=== PATIENT | male | born 1945 | race Caucasian/White ===

== ENCOUNTER 2019-11-05 01:40 | Outpatient (CLI) | payer MEDICARE, SELFPAY | END 2019-11-05 02:00 | PROVIDERS: Visit Provider Urology | DX: R30.0 Dysuria (principal) | CPT/HCPCS: 87077; 87086; 87186 ==

== ENCOUNTER 2019-11-20 02:12 | Outpatient (CLI) | payer MEDICARE, SELFPAY ==
[2019-11-20 12:44] LABS: HGB 9.8 g/dL (13.5-17.5); MCH 31.7 pg (27.0-33.0); MCHC 31.6 % (32.0-36.0); MCV 100.3 fL (80-95); MPV 9.2 fL (8.0-11.0); Platelet Count 152 10^3/uL (130-400); RBC 3.09 10^6/uL (4.36-5.78); RDW 13.5 % (11.8-14.1); WBC 6.03 10^3/uL (4.4-10.8)
[2019-11-20 13:08] LABS: INR 1.1 (0.9-1.1); PTT Activated 43.9 sec (21.0-31.4); Prothrombin Time 10.9 sec (9.3-11.0)
[2019-11-20 13:17] LABS: Hemoglobin A1C 5.4 % (3.8-5.6)
[2019-11-20 13:37] LABS: Albumin 3.8 g/dL (3.4-5.0)
[2019-11-20 14:49] LABS: RDW-SD 48.9 fL
[2019-11-21 09:05] LABS: HBs Antibody, Quant 557.2 mIU/mL (See Note); Hepatitis B Surface Ab Positive (See Note)
[2019-11-21 10:10] LABS: HIV-1/2 Ag & Ab Screen Negative (Negative)
[2019-11-21 11:13] LABS: EBNA IgG Positive (Negative); EBV Interpretation (See Note); VCA IgG Positive (Negative); VCA IgM Negative (Negative)
[2019-11-21 14:26] LABS: HCV RNA Qualitative Undetected (Undetected)
[2019-11-21 18:17] LABS: Hepatitis Be Antigen Negative (Negative)
[2019-11-22 11:41] LABS: CMV Ab, IgM Negative (Negative); Syphilis Total Ab w/Reflex Nonreactive (Nonreactive)
[2019-11-25 15:58] LABS: Coccidioides Ab, CompF Negative (Negative); Coccidioides IgG, ImmDiff Negative (Negative); Coccidioides IgM, ImmDiff Negative (Negative)
== END 2019-11-20 02:32 ==
DX: I10 Essential (primary) hypertension (principal); N18.6 End stage renal disease
CPT/HCPCS: 36415; 85027; 86706; 86900; 86901; 87389; 87522; 87798; 82040; 83036; 85610; 85730; 86592; 86635; 86644; 86645; 86664; 86665; 86704; 86780; 87350

== ENCOUNTER 2020-11-08 16:27 | Emergency (ER) | payer MEDICARE, SELFPAY ==
--- NOTE | 2020-11-08 16:45 | DI.RAD_ITS ---
Exam(s) XR ANKLE RT COMPLETE EXAM: XR ANKLE RT COMPLETE CLINICAL HISTORY: Ankle pain, Hardware eval. TECHNIQUE: 2D digital imaging was performed. COMPARISON: CR RIGHT ANKLE 2 VIEW from 01/02/2015 FINDINGS: There is ankle fusion hardware and there has been resection of the distal fibula Previously present long screws through the calcaneus-posterior aspect of the subtalar joint is been r emoved since 2014 and there is fusion at this level noted. There is been interval placement of an ad ditional plate on the medial aspect of the ankle. This is secured by multiple screws, of 1 inch of w hich appears fractured. The laterally located plate is again noted be associated with at least 2 scr ew fractures. Other screws noted. There does appear to be fusion across the ankle joint. There is no radiographic evidence of osteomyelitis. Vascular calcification is noted in the posterior tibial a rtery and continuing into the plantar arteries. Moderate size inferior calcaneal spur is noted. No fracture evident. IMPRESSION: DATA REPOSITORY: RADIATION DOSE DELIVERED:
[2020-11-08 16:48] VITALS: BP 141/67; PULSE 83; TEMP 36.8; O2SAT 100
--- NOTE | 2020-11-08 16:55 | ED.GENADUL_ITS ---
Discharge Plan Disposition Patient Disposition: HOME Condition: Stable Discharge Details Clinical Impression: Unspecified open wound, right ankle, initial encounter Primary Care Provider: Ross Ramsey ED Provider: Kelsea Jones Home Meds and New Rx's Prescriptions: No Action nifedipine 20 MG capsule 60 mg PO DAILY RF: 0 atenolol 100 MG tablet 100 mg PO DAILY RF: 0 hydrocodone-acetaminophen 1 EACH tablet 2 ea PO TID PRNRF: 0 calcitriol 0.5 MCG capsule 1 mcg PO DAILY RF: 0 hydrochlorothiazide 25 MG tablet 25 mg PO DAILY RF: 0 tizanidine 4 MG capsule 4 mg PO BID PRNRF: 0 Fish Oil 500 MG capsule 500 mg PO RF: 0 cholecalciferol (vitamin D3) [Vitamin D3] 2,000 UNIT capsule 2,000 unit PO RF: 0 vitamin [id number]-ukdik acid 1 EACH tablet 1 ea PO RF: 0 hydrocodone-acetaminophen 1 EACH tablet 1 tab-cap PO Q6H PRN Qty: 30 RF: 0 Discharge Instructions Instructions: Puncture Wound (ED) Additional Instructions: Keep wound clean and dry. Change dressing daily. Follow up with Orthopedics in 1-2 weeks. Follow up with primary care provider in 3-5 days. Return to ED or be seen by PCP sooner if any worsening or concerns. Increase oral fluids. Please take Tylenol or Ibuprofen with food every 4-6 hours as needed for pain and swelling. Referrals: Ross Ramsey [Primary Care Provider] - Sebas Marc MD [ [facility] STAFF PHYSICIAN] - 2 weeks Discharge Data Discharge Date/Time-TO BE ENTERED AT DEPARTURE: 11/08/20 18:48 Medical Decision Making 75-year-old male presents to ER with chief complaint of right ankle pain which he noticed yesterday. Pain has a history of internal hardware placed for an an kle fracture in 2019 in [place]. He noticed a wound to the medial aspect of his ankle while at dialysis today after they were checking his ankle for swelling. He denies any other associated symptoms other than intermittent tenderness. No drainage. He does have a past medical history of hypertension, dialysis. Orthopedic on-call Dr. Marc was able to personally review the images of the ankle x-ray he recommends follow-up in the office nonurgently. This is most likely a chronic matter. Will place dressing on the ankle and instruct patient to follow-up with orthopedics. HPI General Mode of arrival: ambulatory . Date/Time Provider Initiated Documentation: 11/08/20 16:30 . Limitations to Documentation: no limitations . Information obtained by: patient . HPI Narrative: 75-year-old male presents to ER with chief complaint of right ankle pain which he noticed yesterday. Pain has a history of internal hardware placed for an ankle fracture in 2019 in [place]. He noticed a wound to the medial aspect of his ankle while at dialysis today after they were checking his ankle for swelling. He denies any other associated symptoms other than intermittent tenderness. No drainage. He does have a past medical history of HTN, Dialysis. Related Data Home Medications Medication Instructions Recorded Confirmed atenolol 100 mg PO DAILY 01/09/15 calcitriol 1 mcg PO DAILY tab-cap 01/09/15 11/08/20 cholecalciferol (vitamin D3) 2,000 unit PO 01/09/15 [Vitamin D3] hydrochlorothiazide 25 mg PO DAILY tab-cap 01/09/15 hydrocodone-acetaminophen 2 ea PO TID PRN 01/09/15 11/08/20 nifedipine 60 mg PO DAILY 01/09/15 omega-3 fatty acids [Fish Oil] 500 mg PO 01/09/15 tizanidine 4 mg PO BID PRN 01/09/15 11/08/20 vitamin Z27-[id number] acid 1 ea PO 01/09/15 hydrocodone-acetaminophen 1 tab-cap PO Q6H PRN #30 tab-cap 01/24/15 11/08/20 Allergies Allergy/AdvReac Type Severity Reaction Status Date / Time No Known Drug Allergies Allergy Unverified 10/16/15 11:22 General Stated Complaint: Orthopedic JOSE: 4 Review of Systems All systems reviewed & are unremarkable except as noted in HPI and below Musculoskeletal Musculoskeletal: Reports as per HPI and Reports arthralgias (Right ankle) PFS Social History Smoking/Tobacco Use Status: Former Tobacco Use Smoking risk assessment performed?: Yes Alcohol Intake: former Drug use: Never Substance use type: does not use Do you feel safe at home: Yes Do you feel safe in your relationship?: Yes Exam Extrem Right lower extremity: ankle Details: abnormal to inspection, tenderness and no edema Ankle/foot/toe images: 1. Circular lesion, erythemic with a mid ulceration no drainage Course Vital Signs Vital signs: Vital Signs Temperature 36.8 C 11/08/20 16:48 Pulse 83 11/08/20 16:48 Blood Pressure 141/67 H 11/08/20 16:48 Pulse Oximetry 100 11/08/20 16:48 Temperature 36.8 C 11/08/20 16:48 Temperature Source Temporal Artery Scan 11/08/20 16:48 Pulse 83 11/08/20 16:48 Blood Pressure 141/67 H 11/08/20 16:48 Blood Pressure Position Sitting 11/08/20 16:48 Pulse Oximetry 100 11/08/20 16:48 Oxygen Delivery Method Room Air 11/08/20 16:48 Oxygen Flow Rate 0 11/08/20 16:48 Pain Level 1 11/08/20 16:48
--- NOTE | 2020-11-08 18:20 | DI.VRAD_ITS ---
PROCEDURE INFORMATION: Exam: XR Right Ankle Exam date and time: 11/08/2020 4:54 PM Age: 75 years old Clinical indication: Prior surgery; Surgery date: 6+ months; Surgery type: RT ankle fusion? 05/04/2018; Patient HX: Right ankle pain, eval hardware TECHNIQUE: Imaging protocol: XR Right ankle. Views: 3 or more views. COMPARISON: CR RIGHT ANKLE 2 VIEW 01/02/2015 12:16 PM FINDINGS: Bones/joints: There are several screws which are broken are truncated. There are multiple more screws and other hardware than on prior. There is at least partial arthrodesis across the ankle. Osteopenia . Distal left fibular resection again noted. Soft tissues: Normal. Vasculature: Atherosclerosis. Other findings: Pes cavus IMPRESSION: Numerous screws are broken. New hardware since comparison. Clinical correlation recommended . Dictated and Authenticated by: Danyel Grey MD. Ordering:JT Enamorado MD
== END 2020-11-08 18:48 | disposition home or self-care (01) ==
PROVIDERS: Emergency Provider Registered Nurse Emergency; PCP Urology
DX: S91.031A Puncture wound without foreign body, right ankle, initial encounter (principal); X58.XXXA Exposure to other specified factors, initial encounter; T84.116A Breakdown (mechanical) of internal fixation device of bone of right lower leg, initial encounter; Z87.81 Personal history of (healed) traumatic fracture
CPT/HCPCS: 99283; 73610

== ENCOUNTER 2023-09-15 16:10 | Emergency (ER) | payer MEDICARE, SELFPAY ==
[2023-09-15] VITALS (10 sets, daily range): BP systolic 133–165; BP diastolic 47–150; PULSE 61–67; RESP 10–19; TEMP 36.7; O2SAT 93–97
--- NOTE | 2023-09-15 16:35 | W.ED.GENAD ---
Discharge Plan Disposition Patient Disposition: Home Condition: Stable Discharge Details Clinical Impression: Anemia, Dark stools Primary Care Provider: Ross Ramsey ED Provider: Dinesh Grove Home Meds and New Rx's Prescriptions: New omeprazole 40 mg capsule,delayed release(DR/EC) 40 mg PO DAILY Qty: 30 0RF Continued nifedipine 20 MG capsule 60 mg PO DAILY atenolol 100 MG tablet 100 mg PO DAILY hydrocodone-acetaminophen 1 EACH tablet 2 ea PO TID PRN calcitriol 0.5 MCG capsule 1 mcg PO DAILY hydrochlorothiazide 25 MG tablet 25 mg PO DAILY tizanidine 4 MG capsule 4 mg PO BID PRN Fish Oil 500 MG capsule 500 mg PO cholecalciferol (vitamin D3) [Vitamin D3] 2,000 UNIT capsule 2,000 unit PO vitamin X26-[id number] acid 1 EACH tablet 1 ea PO hydrocodone-acetaminophen 1 EACH tablet 1 tab-cap PO Q6H PRN Qty: 30 Discharge Instructions Additional Instructions: Your hemoglobin was above 7 to the blood transfusion Follow-up with your primary care provider within 1 week If you feel more ill, have difficulty breathing or severe weakness or severe abdominal pain return to the emergency department for reevaluation HPI General Date/Time Provider Initiated Documentation: 09/15/23 16:19. Limitations to Documentation: no limitations. Information obtained by: patient. History of Present Illness 78 year old M presents to the emergency department with the chief complaint of Dark stools, described as moderate, Patient started experiencing this week(s) (1) and it has been constant. No relieving factors improve symptom(s), No exacerbating factors reported . Patient notes no other symptoms.; denies chest pain, fever/chills, shortness of breath and weakness. Patient did receive the following treatments prior to arrival, none Related Data Home Medications Medication Instructions Recorded Confirmed atenolol 100 mg tablet 100 mg PO DAILY 01/09/15 calcitriol 0.5 mcg capsule 1 mcg PO DAILY 01/09/15 11/08/20 cholecalciferol (vitamin D3) 50 2,000 unit PO 01/09/15 mcg (2,000 unit) capsule (Vitamin D3) hydrochlorothiazide 25 mg tablet 25 mg PO DAILY 01/09/15 hydrocodone 10 mg-acetaminophen 2 ea PO TID PRN 01/09/15 11/08/20 325 mg tablet nifedipine 20 mg capsule 60 mg PO DAILY 01/09/15 omega-3 fatty acids 500 mg capsule 500 mg PO 01/09/15 (Fish Oil) tizanidine 4 mg capsule 4 mg PO BID PRN 01/09/15 11/08/20 vitamin B12 500 mcg-folic acid 400 1 ea PO 01/09/15 mcg tablet hydrocodone 5 mg-acetaminophen 325 1 tab-cap PO Q6H PRN #30 tab-caps 01/24/15 11/08/20 mg tablet omeprazole 40 mg capsule,delayed 40 mg PO DAILY #30 caps 09/15/23 release Previous Rx's Medication Instructions Recorded omeprazole 40 mg capsule,delayed 40 mg PO DAILY #30 caps 09/15/23 release General Stated Complaint: GI Bleed JOSE: 3 Review of Systems All systems reviewed & are unremarkable except as noted in HPI and below Constitutional Constitutional: Denies chills, Denies fever(s) and Denies weakness Cardiovascular Cardiovascular: Denies chest pain and Denies dyspnea Respiratory Respiratory: Denies cough and Denies dyspnea Gastrointestinal Gastrointestinal: Denies abdominal pain, Denies nausea and Denies vomiting Musculoskeletal Musculoskeletal: Denies joint swelling Neurologic Neurologic: Denies weakness Exam Const General: no acute distress Orientation: alert [facility] Head: normal to inspection Ears: external ears normal General nose exam: external nose normal Mouth: moist mucous membranes Eyes General: appearance normal, both eyes and all related structures Neck Neck: normal visual inspection Resp Effort & Inspection: normal respiratory effort and able to speak in complete sentences Cardio Rate: regular rate GI Palpation: soft and nontender Skin General skin exam: no rashes or lesions noted Neuro General: patient alert and patient oriented x3 Extrem General: normal to inspection Psych Mental Status: mental status grossly normal Course Vital Signs Vital signs: Vital Signs Temperature 36.7 C 09/15/23 16:12 Pulse 67 09/15/23 16:12 Respiratory Rate 18 09/15/23 16:12 Blood Pressure 146/47 H 09/15/23 16:12 Pulse Oximetry 97 09/15/23 16:12 Temperature 36.7 C 09/15/23 16:12 Pulse 67 09/15/23 16:12 Respiratory Rate 18 09/15/23 16:12 Respiratory Effort Normal 09/15/23 16:17 Blood Pressure 146/47 H 09/15/23 16:12 Blood Pressure Position Sitting 09/15/23 16:12 Pulse Oximetry 97 09/15/23 16:12 Oxygen Delivery Method Room Air 09/15/23 16:12 Oxygen Flow Rate 0 09/15/23 16:12 Medical Decision Making 78-year-old male with a history of end-stage renal disease on dialysis Tuesday comes in with 1 week of dark stools. He denies any abdominal pain, increased weakness, difficulty breathing, chest pain. He is alert and oriented x 4 on arrival, has a soft nontender abdomen. I recommended doing a rectal exam and testing for guaiac but patient declined and has decision-making capacity. He does show me a photo of a bowel movement he had yesterday that was dark. No fabiana blood. Will obtain a CBC, CMP, coags and type and screen, given lack of abdominal tenderness do not feel imaging acutely indicated. Will also give a dose of Protonix, he has no signs of liver failure denies chronic alcohol use so doubt varices. Patient continues to feel well and asymptomatic, still declining rectal exam. Labs show hemoglobin of 7.7, has not had blood work done in our system since 2019. Discussed results with patient and spent 90 and blood transfusion did recommend being admitted but can admit him here due to being on dialysis so would have to transfer him. He has decision-making capacity and refuses to be transferred or admitted. He understands that her risks of delaying treatment for possible GI bleed including disability and and he is willing to accept these risks. He is choosing to leave against my advice, he was instructed he can return at any time, and also advised to follow-up with his PCP as soon as possible. Will start him on a omeprazole as well Differential Diagnosis Differential Diagnosis: Gastritis, ulcer, GI bleed Medical Records Medical records reviewed: Yes I reviewed the patient's medical records. Lab Data Lab results reviewed: Yes I reviewed the patient's lab results. Quality:SDOH Health Related Social Needs: No Data to Display [facility] All Active Problems (Updated 09/15/23 @ 18:54 by Dinesh Grove MD) Dark stools (Acute) Anemia (Chronic) Unspecified open wound, right ankle, initial encounter (Acute) Social History Smoking/Tobacco Use Status: Former Tobacco Use Smoking risk assessment performed?: Yes Alcohol Intake: former Drug use: Never Substance use type: does not use Do you feel safe at home: Yes Do you feel safe in your relationship?: Yes
[2023-09-15 17:52] LABS: Abs Immature Grans 0.03 10^3/uL (0.0-0.06); Absolute Basophil Count 0.02 10^3/uL (0.0-0.2); Absolute Eosinophil Count 0.12 10^3/uL (0.0-0.7); Absolute Lymphocyte Count 1.42 10^3/uL (1.2-3.4); Absolute Monocyte Count 0.84 10^3/uL (0.1-0.8); Absolute Neutrophil Count 7.28 10^3/uL (1.2-6.7); Basophils % 0.2 %; Eosinophils % 1.2 %; HCT 24.3 % (40.0-50.0); HGB 7.7 g/dL (13.5-17.5); Immature Grans % 0.3 %; Lymphocytes % 14.6 %; MCHC 31.7 % (32.0-36.0); MCV 104 fL (80-95); MPV 9.7 fL (8.0-11.0); Monocytes % 8.7 %; Platelet Count 171 10^3/uL (130-400); RBC 2.33 10^6/uL (4.36-5.78); RDW 17.3 % (11.8-14.1); RDW-SD 62.5 fL; WBC 9.71 10^3/uL (4.4-10.8)
[2023-09-15 18:02] LABS: ALT 16 U/L (16-63); AST 6 U/L (15-37); Albumin 3.1 g/dL (3.4-5.0); Alkaline Phosphatase 109 U/L (46-116); BUN 48 mg/dL (7-18); Bilirubin, Total 0.8 mg/dL (0.2-1.0); Calcium 9.2 mg/dL (8.5-10.1); Chloride 94 mmol/L (98-107); Estimated GFR 7.55 (mL/min/1.73m2); Glucose 93 mg/dL (74-106); Potassium 5.8 mmol/L (3.5-5.1); Sodium 132 mmol/L (136-145); Total Protein 6.5 g/dL (6.4-8.2)
[2023-09-15 18:08] LABS: Diff Comment RBC Morph Reviewed; Hypochromasia 2+; Polychromasia Present
[2023-09-15 18:10] LABS: INR 1.1 (0.9-1.1); PTT Activated 39.6 sec (23.6-32.8); Prothrombin Time 10.6 sec (9.1-11.1)
[2023-09-15] MEDS: Pantoprazole 40 MG VIAL IVP (18:16)
== END 2023-09-15 19:22 | disposition home or self-care (01) ==
PROVIDERS: Emergency Provider Emergency Medicine; PCP Urology
DX: D64.9 Anemia, unspecified (principal); K92.1 Melena
CPT/HCPCS: 36415; 80053; 86850; 86900; 86901; 96374; 99284; 83735; 85025; 85610; 85730; 99283; J2470

== ENCOUNTER 2023-09-28 19:20 | Emergency (ER) | payer MEDICARE, SELFPAY ==
[2023-09-28] VITALS (45 sets, daily range): BP systolic 89–212; BP diastolic 22–169; PULSE 56–85; RESP 12–25; TEMP 36.6; O2SAT 89–98
--- NOTE | 2023-09-28 19:30 | RT.EKG_ITS ---
APPROVED REPORT Exam: Resting ECG Reason for Exam: weakness Patient Location: E HR:63 bpm ECG Measurements Heart Rate 63 AXIS HI 178 P 44 QRSd 93 QRS -38 QT 428 T 26 QTc 441 Conclusion Sinus rhythm...normal P axis, V-rate 60- 99 Left axis deviation...QRS axis (-30,-90) I have reviewed and interpreted ECG and agree with software generated interpretation.
--- NOTE | 2023-09-28 19:30 | DI.RAD_ITS ---
Exam(s) XR CHEST 2V PA LATERAL EXAM: XR CHEST 2V PA LATERAL CLINICAL HISTORY: weakness. TECHNIQUE: 2D digital imaging was performed. COMPARISON: No exams were available for comparison FINDINGS: 2 views: There is a right supra clavi in double lumen catheter with distal tip in upper right atrium. Heart size is normal. The mediastinum is not widened. Lungs are clear. No infiltrates nor pleural effusions. Pulmonary edema. Multilevel fusion hardware in is noted in the thoracolumbar spine and there is also fusion hardware i n the cervical spine. IMPRESSION: No acute pulmonary findings. Other findings as above. DATA REPOSITORY: RADIATION DOSE DELIVERED:
--- NOTE | 2023-09-28 19:43 | W.ED.GENAD ---
Discharge Plan Discharge Details Chief Complaint: GenMedical Primary Care Provider: Ross Ramsey ED Provider: Yolande Lopez Home Meds and New Rx's Prescriptions: No Action nifedipine 20 MG capsule 60 mg PO DAILY atenolol 100 MG tablet 100 mg PO DAILY hydrocodone-acetaminophen 1 EACH tablet 2 ea PO TID PRN calcitriol 0.5 MCG capsule 1 mcg PO DAILY hydrochlorothiazide 25 MG tablet 25 mg PO DAILY tizanidine 4 MG capsule 4 mg PO BID PRN Fish Oil 500 MG capsule 500 mg PO cholecalciferol (vitamin D3) [Vitamin D3] 2,000 UNIT capsule 2,000 unit PO vitamin O80-[id number] acid 1 EACH tablet 1 ea PO hydrocodone-acetaminophen 1 EACH tablet 1 tab-cap PO Q6H PRN Qty: 30 omeprazole 40 mg capsule,delayed release(DR/EC) 40 mg PO DAILY Qty: 30 0RF HPI General Date/Time Provider Initiated Documentation: 09/28/23 19:28. Limitations to Documentation: no limitations. Information obtained by: patient, family and RN notes reviewed. History of Present Illness 78 year old M presents to the emergency department with the chief complaint of generalized weakness, described as moderate, Patient started experiencing this day(s) and it has been constant (progressively worsening). No relieving factors improve symptom(s), Movement worsens symptoms (symptoms worsen with exertion) . Patient notes weakness (generalized); denies confusion, chest pain, cough, diaphoresis, fever/chills, headaches, malaise, nausea/vomiting, rash, shortness of breath and syncope. Patient did receive the following treatments prior to arrival, other (dialysis today) Related Data Home Medications Medication Instructions Recorded Confirmed atenolol 100 mg tablet 100 mg PO DAILY 01/09/15 calcitriol 0.5 mcg capsule 1 mcg PO DAILY 01/09/15 11/08/20 cholecalciferol (vitamin D3) 50 2,000 unit PO 01/09/15 mcg (2,000 unit) capsule (Vitamin D3) hydrochlorothiazide 25 mg tablet 25 mg PO DAILY 01/09/15 hydrocodone 10 mg-acetaminophen 2 ea PO TID PRN 01/09/15 11/08/20 325 mg tablet nifedipine 20 mg capsule 60 mg PO DAILY 01/09/15 omega-3 fatty acids 500 mg capsule 500 mg PO 01/09/15 (Fish Oil) tizanidine 4 mg capsule 4 mg PO BID PRN 01/09/15 11/08/20 vitamin B12 500 mcg-folic acid 400 1 ea PO 01/09/15 mcg tablet hydrocodone 5 mg-acetaminophen 325 1 tab-cap PO Q6H PRN #30 tab-caps 01/24/15 11/08/20 mg tablet omeprazole 40 mg capsule,delayed 40 mg PO DAILY #30 caps 09/15/23 release Previous Rx's Medication Instructions Recorded omeprazole 40 mg capsule,delayed 40 mg PO DAILY #30 caps 09/15/23 release General Stated Complaint: GenMedical JOSE: 3 Review of Systems Constitutional Constitutional: Reports as per HPI, Denies chills, Denies fever(s), Denies headache(s) and Denies poor appetite Eyes Eyes: Denies change in vision ENT Ears, Nose, Mouth, and Throat: Denies dizziness and Denies headache(s) Cardiovascular Cardiovascular: Reports as per HPI, Denies dyspnea and Denies dyspnea on exertion Respiratory Respiratory: Reports as per HPI, Denies chest congestion, Denies cough, Denies pain on inspiration, Denies pain with cough, Denies dyspnea and Denies dyspnea on exertion Gastrointestinal Gastrointestinal: Reports as per HPI, Denies abdominal pain, Denies diarrhea and Denies vomiting Musculoskeletal Musculoskeletal: Reports as per HPI and Denies back pain Integumentary/Breasts Skin/Breast: Reports as per HPI and Denies rash Neurologic Neurologic: Reports as per HPI, Denies dizziness and Denies headache(s) Exam Const General: cooperative, comfortable, no acute distress, well developed and ill appearing chronically Nutritional Appearance: average body habitus and well nourished Orientation: alert, awake and oriented x3 HENMT Head: normal to inspection Ears: hearing grossly normal bilaterally Chest Chest: other (right sided port, no erythema) Resp Effort & Inspection: normal respiratory effort, able to speak in complete sentences and no respiratory distress Auscultation: clear to auscultation bilaterally, no rales, no rhonchi and no wheezes Cardio Rate: regular rate Rhythm: regular rhythm Heart Sounds: murmur GI Inspection: normal to inspection, no edema and non-distended Palpation: soft, no hepatosplenomegaly, not firm, no guarding, not rigid and nontender Back/Spine/Pelvis Back: no CVA tenderness Skin General skin exam: no rashes or lesions noted and other (fistula LUE) Trauma: no lacerations or abrasions Neuro General: patient alert, patient awake and patient oriented x3 Cognition: normal cognition Speech: speech normal Extrem General: normal to inspection, capillary refill normal, no calf tenderness and edema Laterality: bilateral (2+ pitting) Course Vital Signs Vital signs: Vital Signs Temperature 36.6 C 09/28/23 19:30 Pulse 63 09/28/23 19:30 Respiratory Rate 18 09/28/23 19:30 Blood Pressure 155/90 H 09/28/23 19:30 Pulse Oximetry 93 09/28/23 19:30 Temperature 36.6 C 09/28/23 19:30 Temperature Source Temporal Artery Scan 09/28/23 19:30 Pulse 63 09/28/23 19:30 Respiratory Rate 18 09/28/23 19:30 Blood Pressure 155/90 H 09/28/23 19:30 Blood Pressure Position Supine 09/28/23 19:30 Pulse Oximetry 93 09/28/23 19:30 Oxygen Delivery Method Room Air 09/28/23 19:30 Oxygen Flow Rate 0 09/28/23 19:30 Medical Decision Making Patient is a pleasant 78 year old male, presenting today with c/c of generalized weakness and fall. Past medical history significant for end-stage renal disease, dialyzed today, anemia, pretension, hypercholesterolemia, CVA and multiple spinal surgeries. Known cardiac murmur. He reports that he has been progressively weakening over the past few days. His legs felt weak enough today that he ultimately fell. He denies injury at the time of the incident. Has not noted 1 side being worse than the other. No headaches, vision changes, focal weakness. He denies any fevers or chills. No recent respiratory symptoms. He denies any chest pain shortness of breath. Denies any nausea or vomiting. Was seen here last month for dark stools, he states that these have persisted but not increased. He reports that this has been ongoing for past several years he has been having dark stools. Patient does make urine and states that his urine is slightly cloudy. Denies any abdominal pain or back pain. Patient reports that he did miss dialysis on Tuesday, did make his appointment today. Had been questioning if that was the cause of his symptoms. He denies dizziness, syncopal episode. On exam, patient appears chronically ill. He is initially hypertensive but this has come down. He does have a tremor of his lower jaw which he reports has been increasing over recent months. had not noticed this as of yet. No tremor noted in any of his extremities. Lungs are clear. He has a notable systolic murmur patient reports that this is been present for several years. He is denying any chest pain. Abdominal exam is benign. He does have 2+ lower extremity pitting edema. No focal area of weakness is appreciated on exam. Mentation is appropriate without confusion. Does have scattered bruising, particularly on upper extremities. Differential at this time is quite broad. Patient was dialyzed today suggest significant electrolyte abnormalities although this is certainly possibility. Patient's not endorsing any shortness of breath or chest pain but did consider potential for ACS. Also discussed considering progression of disease. Also concern for progressing anemia, patient's hemoglobin was last 7.7 and not believe he has had this reassessed since last being seen in the emergency department. Patient may require transfusion and type and screen will be obtained. Patient does appear to have excess fluid in the lower extremities as well as [place] of bruising so I did consider low albumin, potential liver dysfunction will assess with PT PTT. Will obtain chest x-ray. Do not note any focal concerns, I do not believe there is need for brain imaging at this time. Patient has not had any headache or reported focal concerns. I discussed this plan with the patient is in agreement. Also considered urinary tract infection given the cloudy nature of his urine. Patient is afebrile currently and reports being afebrile at home. He is not tachycardic and does not appear acutely septic. Patient also reports that he had a remote history of thyroid dysfunction, considered thyroid abnormality. FINDINGS: Tubes, catheters and devices: There is a right internal jugular central venous catheter in-situ with its tip at the cavoatrial junction. Lungs: No pulmonary consolidation is seen. Pleural spaces: No pleural effusion or pneumothorax is demonstrated. Heart/Mediastinum: The heart appears normal in size. There appear to be calcified lymph nodes at the pulmonary pradeep suggesting a prior granulomatous infection. Bones/joints: Lower cervical and thoracolumbar spinal fixation hardware is partially visualized. Within the limits of the exam, the visualized bony structures appear grossly intact. IMPRESSION: No active disease is seen in the chest. Labs reviewed. White count is in the normal limits. Hemoglobin is 9.4, this is up from 7.7. CMP is concerning for an elevated potassium of 5.6. Creatinine of 7.5 which is slightly elevated compared to when it was checked last month. Electrolytes otherwise within normal limits. Normal troponin. TSH within normal limits. Is urinalysis is also pending. Patient refused straight cath. Prefers to area in zone. However, patient then had some urinary incontinence. 250 cc remain in his bladder but patient continues to refuse straight cath. Prior to obtaining urinalysis, patient requesting discharge. I did speak with the patient, I am concerned that he is not going to be able to make it into his house given his generalized weakness. Patient had difficulty standing to attempt to urinate. Continues to appear very fatigued. By discussing his concerns with the patient, he is agreeable to staying. Patient also began developing some nausea and had some dry heaving. Will obtain a CT scan as he reported that he had been having some abdominal discomfort. At the end of my shift, care transitioned to Dr. Abdalla with urinalysis and CT abdomen pending. Patient is agreeable to admission if warranted. I am concerned regarding safety should he go home at this time. Quality:[facility] Health Related Social Needs: No Data to Display [facility] All Active Problems (Updated 09/15/23 @ 18:54 by Dinesh Grove MD) Dark stools (Acute) Anemia (Chronic) Unspecified open wound, right ankle, initial encounter (Acute) Social History Smoking/Tobacco Use Status: Former Tobacco Use Smoking risk assessment performed?: Yes Alcohol Intake: former Drug use: Never Substance use type: does not use Housing: house Do you feel safe at home: Yes Do you feel safe in your relationship?: Yes Sign Out Sign Out Data: Sign Out Comment: Care transition to Dr. Abdalla with urinalysis and CT pending. Patient received dialysis today. He is slightly hyperkalemic and has an elevated creatinine but this appears to be baseline for the patient. He is presenting today with concerns for generalized weakness. I am concerned regarding safety at home. However, unclear what is causing this acute onset of generalized weakness. May be associated with missed dosing of dialysis on Tuesday. Also considered urinary tract infection as he felt that his urine is more cloudy. As patient was also endorsing some nausea and vomiting, abdominal CT also obtained. Last updated by Yolande Lopez PA at 09/29/23 00:25
[2023-09-28 20:17] LABS: Abs Immature Grans 0.02 10^3/uL (0.0-0.06); Absolute Basophil Count 0.03 10^3/uL (0.0-0.2); Absolute Eosinophil Count 0.03 10^3/uL (0.0-0.7); Absolute Lymphocyte Count 0.76 10^3/uL (1.2-3.4); Absolute Neutrophil Count 4.62 10^3/uL (1.2-6.7); Basophils % 0.5 %; Eosinophils % 0.5 %; HCT 30.4 % (40.0-50.0); HGB 9.4 g/dL (13.5-17.5); Immature Grans % 0.3 %; Lymphocytes % 12.1 %; MCH 32.4 pg (27.0-33.0); MCHC 30.9 % (32.0-36.0); MCV 105 fL (80-95); MPV 9.4 fL (8.0-11.0); Monocytes % 12.8 %; Neutrophils % 73.8 %; Platelet Count 181 10^3/uL (130-400); RDW 17.2 % (11.8-14.1); RDW-SD 66.6 fL; WBC 6.26 10^3/uL (4.4-10.8)
[2023-09-28 20:29] LABS: INR 1.1 (0.9-1.1); PTT Activated 45.5 sec (23.6-32.8); Prothrombin Time 10.7 sec (9.1-11.1)
[2023-09-28 20:34] LABS: ALT 16 U/L (16-63); AST 12 U/L (15-37); Albumin 2.8 g/dL (3.4-5.0); Alkaline Phosphatase 104 U/L (46-116); Anion Gap 8.1 mmol/L (3-11); BUN 26 mg/dL (7-18); Bilirubin, Total 0.8 mg/dL (0.2-1.0); CO2 32.9 mmol/L (21.0-32.0); Calcium 9.3 mg/dL (8.5-10.1); Chloride 97 mmol/L (98-107); Estimated GFR 6.95 (mL/min/1.73m2); Glucose 128 mg/dL (74-106); Potassium 5.6 mmol/L (3.5-5.1); Sodium 138 mmol/L (136-145); Total Protein 6.7 g/dL (6.4-8.2); Troponin I < 50 ng/L (< or =60)
[2023-09-28 20:35] LABS: CREATININE 7.5 mg/dL (0.70-1.30)
[2023-09-28 20:39] LABS: TSH 2.11 uIU/Ml (0.36-3.74)
--- NOTE | 2023-09-28 20:47 | DI.VRAD_ITS ---
PROCEDURE INFORMATION: Exam: XR Chest Exam date and time: 09/28/2023 8:15 PM Age: 78 years old Clinical indication: Other: Weakness TECHNIQUE: Imaging protocol: Radiologic exam of the chest. Views: 2 views. COMPARISON: No relevant prior studies available. FINDINGS: Tubes, catheters and devices: There is a right internal jugular central venous catheter in-situ with its tip at the cavoatrial junction. Lungs: No pulmonary consolidation is seen. Pleural spaces: No pleural effusion or pneumothorax is demonstrated. Heart/Mediastinum: The heart appears normal in size. There appear to be calcified lymph nodes at the pulmonary pradeep suggesting a prior granulomatous infection. Bones/joints: Lower cervical and thoracolumbar spinal fixation hardware is partially visualized. Within the limits of the exam, the visualized bony structures appear grossly intact. IMPRESSION: No active disease is seen in the chest. Dictated and Authenticated by: Henry Mercer MD. Ordering:MAGNOLIA Lanier MD
--- NOTE | 2023-09-28 23:00 | DI.CT_ITS ---
Exam(s) CT ABDOMEN PELVIS WO EXAM: CT ABDOMEN PELVIS WO CLINICAL HISTORY: abdominal discomfort, dialysis patient, vomiting. TECHNIQUE: Imaging Protocol: Axial computed tomography images with coronal and sagittal reformatted images were created and reviewed CONTRAST MATERIAL: Intravenous: none Oral: None COMPARISON: No exams were available for comparison FINDINGS: VISUALIZED LUNG BASES: No nodules nor pleural effusions evident. ABDOMEN: There is no ascites. LIVER: There are no obvious focal hepatic lesions evident of this noninfused study. GALLBLADDER/BILIARY: There is some sludge noted in the gallbladder. Gallbladder does not appear briseida atous and there is no pericholecystic fluid. CBD is not dilated. PANCREAS: No evidence of pancreatic mass nor dilatation of the pancreatic duct. SPLEEN: Spleen is not enlarged. No obvious intrasplenic lesions. ADRENALS: There are no significant adrenal masses. KIDNEYS:Kidneys are both atrophic and contain numerous benign cysts with no solid lesions evident in either kidney. There is a solitary small calculus in the right kidney measuring approximately 4 mm. There is a solitary punctate 1 mm calculus in the left kidney. No hydronephrosis nor hydroureter on either side. No solid renal masses. No hydronephrosis nor hydroureter.. ABDOMINAL AORTA: Calcified with upper normal diameter. Common iliac arteries also calcified with upp er normal diameters. LYMPH NODES: There is no retroperitoneal nor paraaortic adenopathy. ABDOMINAL WALL: No evidence of significant anterior abdominal wall nor inguinal hernia. GI: There is no evidence of bowel obstruction, free air, nor abscess. PELVIS: LYMPH NODES: There is no intrapelvic nor inguinal adenopathy. GI: Appendix not identified. No evidence of obvious acute appendicitis.No evidence of sigmoid divert iculitis. URINARY BLADDER: No obvious calculi nor obvious masses evident REPRODUCTIVE: Prostate small or surgically absent. No surgical clip seen. OSSEOUS: There is extensive posterior fusion hardware in the thoracolumbar spine comprised of posteri or fusion rods and multilevel intrapedicular screws and hardware extends into the pelvis. There is a lso left hip prosthesis. IMPRESSION: 1. No obvious acute findings in the abdomen pelvis on this non infused CT study.. 2. Both kidneys are atrophic and contain multiple benign small cysts. Patient is apparently dialysis patient. No solid renal masses. Single calculus in each kidney, nonobstructive. No evidence of ur inary tract obstruction. 3. Extensive fusion hardware in the thoracic-lumbar spines. RADIATION DOSE DELIVERED: 555.37mGy.cm Total DLP DATA REPOSITORY: All CT scans at this facility are submitted to the National Radiology Data Registry (NRDR) Dose Index Registry (DIR) with the [employer] (A[employer]). RADIATION OPTIMIZATION: All CT scans at this facility use at least one of these dose optimization te chniques: automated exposure control; mA and/or kV adjustment per patient size (includes targeted exa ms where dose is matched to clinical indication); or iterative reconstruction.
[2023-09-28] MEDS: Ondansetron 4 MG/2 ML VIAL IVP (23:07)
[2023-09-28 23:42] LABS: Troponin I < 50 ng/L (< or =60)
[2023-09-29] VITALS (43 sets, daily range): BP systolic 69–130; BP diastolic 13–49; PULSE 47–109; RESP 5–32; O2SAT 72–100
--- NOTE | 2023-09-29 00:28 | DI.VRAD_ITS ---
PROCEDURE INFORMATION: Exam: CT Abdomen And Pelvis Without Contrast Exam date and time: 09/28/2023 11:53 PM Age: 78 years old Clinical indication: Vomiting; Abdominal pain; Other: Abdominal discomfort; Additional info: Abdominal discomfort, dialysis patient, vomiting TECHNIQUE: Imaging protocol: Computed tomography of the abdomen and pelvis without contrast. COMPARISON: US RENAL ULTRASOUND(P) 04/26/2017 9:03 AM FINDINGS: Lungs: Minimal streaky and dependent atelectasis. Pleural spaces: Trace pleural fluid on the right. Heart: Heart only partially visualized but normal in size. Prominent calcification of the mitral valve annulus. Coronary artery calcification. Aortic valve calcification. Liver: Unenhanced liver partially obscured by artifact but grossly unremarkable, as seen. Gallbladder and bile ducts: Gallbladder partially distended. Layering intermediate density in the gallbladder, probably incompletely calcified stones, sludge, or artifact. No biliary dilatation. Pancreas: Mild-moderate atrophy of the pancreas. Spleen: Unenhanced spleen partially obscured by artifact but grossly unremarkable, as seen. Adrenal glands: Normal appearing adrenal glands. Kidneys and ureters: Atrophic kidneys. Numerous small indeterminate hypoattenuating renal lesions, not well characterized but statistically most likely renal cysts. Nonobstructing 2 mm right renal calcification. No hydronephrosis. Ureters obscured. Urinary bladder partially obscured by streak artifact but moderately distended. Stomach and bowel: No oral contrast. Stomach partially distended with fluid. No small bowel dilatation to suggest obstruction. Normal-appearing colon. No evidence of diverticulitis or colitis. Appendix: Appendix not identified. Surgical material at the cecal apex suggesting a prior appendectomy. Correlation with surgical history recommended. If there is clinical concern for acute appendicitis and the patient still has an appendix, additional evaluation would be recommended. Intraperitoneal space: No gross ascites or free air. No gross ascites or free air. Vasculature: Normal caliber abdominal aorta. Extensive coronary artery calcification throughout the abdominal aorta and extending into the splanchnic and pelvic arteries. Lymph nodes: No pathologically enlarged mesenteric, retroperitoneal, or pelvic sidewall lymph nodes. Urinary bladder: See Kidneys and ureters finding. Reproductive: Prostate gland and seminal vesicles partially obscured by artifact but not grossly enlarged. Bones/joints: No acute fracture seen among the bones of the abdomen or pelvis. Prior left hip arthroplasty with streak artifact created by the metallic prosthesis partially obscuring the lower pelvis. Extensive thoracolumbosacral fixation hardware with associated streak artifact. Fusion across much of the visualized spine with preserved disc spaces at T10-T11 and T12-L1. Soft tissues: Mild symmetric gynecomastia partially visualized. No significant ventral or inguinal hernia. IMPRESSION: No acute bowel pathology demonstrated. Dictated and Authenticated by: Henry Mercer MD. Ordering:MAGNOLIA Lanier MD
[2023-09-29 01:12] LABS: Bilirubin Negative (Negative); Blood Moderate (Negative); Clarity Turbid (Clear); Glucose Negative (Negative); Ketones Trace mg/dL (Negative); Leukocyte Esterase Large (Negative); Nitrite Negative (Negative); Specific Gravity 1.025 (1.005-1.025); Urobilinogen 0.2 mg/dL (Up to 0.2)
[2023-09-29 01:18] LABS: WBC >50 HPF (0-5)
[2023-09-29 01:19] LABS: C & S Indicated? Yes
[2023-09-29] MEDS: cefTRIAXone 2 GM/50 ML BAG IVPB (01:20)
--- NOTE | 2023-09-29 01:42 | ED.PROG_ITS ---
Date of service: 09/29/23 Time of Service: 01:42 Medical Decision Making Patient was transitioned to sd in signout. Please refer to the HPI, physical exam, assessment and plan. At time of signout disposition was uncertain, and we are awaiting CT scan results. Urinalysis had not been obtained secondary to pat ient noncompliance. Transition of care occurred between 12 and 12:30 AM. At that time CT scan has returned and shows no evidence of acute process. Laboratory workup was relatively equivocal. Initially patient presented with hypertension. Blood pressure began to transition to the 90s. I went and had a conversation with the patient and discussed the importance of the urinalysis. He consents and agrees. Patient remains notably weak. He is unable to get up from bed. He does appear quite tired and fatigued, but shows no focal neurologic deficits. He does answer questions and reiterates his CODE STATUS of full code. He does appear mildly dehydrated. Blood pressures are slightly soft in the 90s systolic at this time. 1:20 AM Urinalysis has returned notably positive, urine is quite purulent in nature. Blood pressure is now in the 70s to 80s systolic. We will start a liter of normal saline for blood pressure management as the patient does appear dehydrated and did just receive dialysis today. Will start ceftriaxone for treatment of UTI, and continue to monitor closely. 1:40 AM Patient's blood pressure is now 88 systolic, we will continue fluid resuscitation for a liter total before assessing need for potential pressors. Due to the hypotension that has now recurred we will add vancomycin and Zosyn for urosepsis. Review of patient's labs demonstrates no white count or bandemia. Potassium was 5.6 however this appears to be his chronic baseline. Urinalysis is leuk esterase positive, greater than 50 WBCs obstructing all other paulino of view on UA. Patient will require admission. We did contact [facility] and the [facility], and neither are able to accept the patient for transfer secondary to bed capacity issues. Will reach out to [facility]. 2:38 AM Discussed the case with Dr. Sun, he accepts the patient for transfer. Antibiotics are still infusing. Blood pressure remains at this time in the 80s systolic. Will continue fluids. 2 IVs have been established. Patient will be transferred emergently to [facility] for urosepsis/septic shock. If patient's blood pressure is declining and route, will recommend pressor support. I have extensively reviewed the treatment plan with the patient. I have addressed all patient concerns at this time. I have also discussed the plan with the admitting physician and they agree with the current assessment and plan and have agreed to assume responsibility for the patient. All parties demonstrate verbal understanding and agreement with our assessment and plan at this time. The documentation in this chart was dictated using [employer] dictation software. Please excuse any dictation errors. At time of transfer the patient was reassessed and continued to demonstrate No signs of acute respiratory distress requiring intubation, or rapidly declining mental status. FINDINGS: Lungs: Minimal streaky and dependent atelectasis. Pleural spaces: Trace pleural fluid on the right. Heart: Heart only partially visualized but normal in size. Prominent calcification of the mitral valve annulus. Coronary artery calcification. Aortic valve calcification. Liver: Unenhanced liver partially obscured by artifact but grossly unremarkable, as seen. Gallbladder and bile ducts: Gallbladder partially distended. Layering intermediate density in the gallbladder, probably incompletely calcified stones, sludge, or artifact. No biliary dilatation. Pancreas: Mild-moderate atrophy of the pancreas. Spleen: Unenhanced spleen partially obscured by artifact but grossly unremarkable, as seen. Adrenal glands: Normal appearing adrenal glands. Kidneys and ureters: Atrophic kidneys. Numerous small indeterminate hypoattenuating renal lesions, not well characterized but statistically most likely renal cysts. N onobstructing 2 mm right renal calcification. No hydronephrosis. Ureters obscured. Urinary bladder partially obscured by streak artifact but moderately distended. Stomach and bowel: No oral contrast. Stomach partially distended with fluid. No small bowel dilatation to suggest obstruction. Normal-appearing colon. No evidence of diverticulitis or colitis. Appendix: Appendix not identified. Surgical material at the cecal apex suggesting a prior appendectomy. Correlation with surgical history recommended. If there is clinical concern for acute appendicitis and the patient still has an appendix, additional evaluation would be recommended. Intraperitoneal space: No gross ascites or free air. No gross ascites or free air. Vasculature: Normal caliber abdominal aorta. Extensive coronary artery calc ification throughout the abdominal aorta and extending into the splanchnic and pelvic arteries. Lymph nodes: No pathologically enlarged mesenteric, retroperitoneal, or pelvic sidewall lymph nodes. Urinary bladder: See Kidneys and ureters finding. Reproductive: Prostate gland and seminal vesicles partially obscured by artifact but not grossly enlarged. Bones/joints: No acute fracture seen among the bones of the abdomen or pelvis. Prior left hip arthroplasty with streak artifact created by the metallic prosthesis partially obscuring the lower pelvis. Extensive thoracolumbosacral fixation hardware with associated streak artifact. Fusion across much of the visualized spine with preserved disc spaces at T10-T11 and T12-L1. Soft tissues: Mild symmetric gynecomastia partially visualized. No significant ventral or inguinal hernia. IMPRESSION: No acute bowel pathology demonstrated. Thank you for allowing us to participate in the care of your patient. Dictated and Authenticated by: Henry Mercer MD 09/29/2023 12:28 AM Eastern Time ([place] & [place]) Quality:SDOH Health Related Social Needs: No Data to Display Critical Care Time Critical Care Time Critical Care Time: Yes Total Critical Care Time: 90 Attestation: Upon my evaluation, this patient had a high probability of imminent or life- threatening deterioration, which required my direct attention, intervention, and personal management. I have personally provided 90 minutes of critical care time exclusive of time spent on separately billable procedures. Time includes review of laboratory data, radiology results, discussion with consultants, and monitoring for potential decompensation. Interventions were performed as documented. Sign Out Sign Out Data: Sign Out Comment: Care transition to Dr. Abdalla with urinalysis and CT pending. Patient received dialysis today. He is slightly hyperkalemic and has an elevated creatinine but this appears to be baseline for the patient. He is presenting today with concerns for generalized weakness. I am concerned regarding safety at home. However, unclear what is causing this acute onset of generalized weakness. May be associated with missed dosing of dialysis on Tuesday. Also considered urinary tract infection as he felt that his urine is more cloudy. As patient was also endorsing some nausea and vomiting, abdominal CT also obtained. Last updated by Yolande Lopez PA at 09/29/23 00:25 Discharge Plan Disposition Patient Disposition: Transfer-Acute Inpatient Care Specific Acute Inpt Facility: [facility] Condition: Serious Discharge Details Chief Complaint: GenMedical Clinical Impression: Acute pyelonephritis, Septic shock Primary Care Provider: Ross Ramsey ED Provider: Gregory Abdalla Home Meds and New Rx's Prescriptions: No Action nifedipine 20 MG capsule 60 mg PO DAILY atenolol 100 MG tablet 100 mg PO DAILY hydrocodone-acetaminophen 1 EACH tablet 2 ea PO TID PRN calcitriol 0.5 MCG capsule 1 mcg PO DAILY hydrochlorothiazide 25 MG tablet 25 mg PO DAILY tizanidine 4 MG capsule 4 mg PO BID PRN Fish Oil 500 MG capsule 500 mg PO cholecalciferol (vitamin D3) [Vitamin D3] 2,000 UNIT capsule 2,000 unit PO vitamin [id number] 1 EACH tablet 1 ea PO hydrocodone-acetaminophen 1 EACH tablet 1 tab-cap PO Q6H PRN Qty: 30 omeprazole 40 mg capsule,delayed release(DR/EC) 40 mg PO DAILY Qty: 30 0RF
[2023-09-29] MEDS: Normal Saline 1,000 ML 1000 ML IV (01:59)
[2023-09-29] MEDS: PIPERACILLIN/TAZO 3.375 GM in Normal Saline 50 ML IVPB (02:01)
[2023-09-29] MEDS: VANCOMYCIN 1,300 MG in Normal Saline 500 ML 333.3333 MG IVPB (02:49)
--- NOTE | 2023-09-29 03:35 | NUR.NOTE ---
Phone call made to Pt's discussing diagnosis and plan. Advised Pt was being transferred to [facility] and will be transported via ambulance. Pt's , Shukri, stated she understood. Nursing Note:
--- NOTE | 2023-10-01 08:06 | NUR.NOTE ---
Accessed chart to look up whether or not on antibiotic for culture result. Patient transferred to [place], result faxed to that facility. P [phone] F [phone] Nursing Note:
== END 2023-09-29 03:31 | disposition short-term general hospital (02) ==
PROVIDERS: Physician Assistant; Emergency Provider Student in an Organized Health Care Education/Training Program; PCP Urology
DX: N10 Acute pyelonephritis (principal); R65.21 Severe sepsis with septic shock; I12.0 Hypertensive chronic kidney disease with stage 5 chronic kidney disease or end stage renal disease; N18.6 End stage renal disease; Z86.73 Personal history of transient ischemic attack (TIA), and cerebral infarction without residual deficits; Z99.2 Dependence on renal dialysis; Z87.891 Personal history of nicotine dependence
CPT/HCPCS: 00123; 36415; 80053; 86850; 86900; 86901; 87040; 93005; 96365; 96367; 96375; 99285; 71046; 74176; 81003; 81015; 83735; 84443; 84484; 85025; 85610; 85730; 87086; 93010; J0696; J2405; J2543; J3370